=== PATIENT | female | born 1975 | race Caucasian/White ===

== ENCOUNTER 2021-11-08 04:10 | Emergency (ER) | payer SELFPAY ==
[~2021-11-08] VITALS: Ht 154.9 cm; Wt 102.1 kg
[2021-11-08 04:15] VITALS: BP 112/66
--- NOTE | 2021-11-08 04:18 | NUR ---
TO LOBBY A/W BED AMBULATORY
[2021-11-08 05:23] LABS: APPEARANCE,URINE CLEAR (CLEAR); BILIRUBIN,URINE NEGATIVE (NEGATIVE); BLOOD, URINE TRACE-I (NEGATIVE); COLOR,URINE YELLOW (YELLOW); LEUKOCYTE ESTERASE ,URINE NEGATIVE (NEGATIVE); NITRITE, URINE NEGATIVE (NEGATIVE); UGLUCOSE NEGATIVE (NEGATIVE)
[2021-11-08 05:25] LABS: BASOPHILS # (AUTO) 0.1 K/uL (0.00-0.22); BASOPHILS % (AUTO) 0.7 % (0.0-2.0); EOSINOPHILS # (AUTO) 0.1 K/uL (0-0.4); EOSINOPHILS % (AUTO) 1.3 % (0.0-4.0); HEMATOCRIT 37.1 % (36-48); HEMOGLOBIN 12.7 g/dL (12.0-16.0); LYMPHOCYTES # (AUTO) 2.3 K/uL (2.5-16.5); LYMPHOCYTES % (AUTO) 28.5 % (20.5-51.1); MEAN CORPUSCULAR HEMOGLOBIN 31 pg (27-31); MEAN CORPUSCULAR HGB CONC 34 g/dL (33-37); MONOCYTES # (AUTO) 0.7 K/uL (0.8-1.0); MONOCYTES % (AUTO) 8.1 % (1.7-9.3); NEUTROPHILS % (AUTO) 61.4 % (42.2-75.2); PLATELET COUNT (AUTO) 270 K/uL (140-450); RED BLOOD CELL COUNT(AUTO) 4.17 MIL/uL (4.20-5.40); RED CELL DISTRIBUTION WIDTH 14.1 % (11.6-13.7); WHITE BLOOD COUNT (AUTO) 8.2 K/uL (4.8-10.8)
[2021-11-08 05:40] LABS: RBC,URINE 0-5 /HPF (0-5)
[2021-11-08 05:41] LABS: WBC,URINE 0-5 /HPF (0-5)
[2021-11-08 05:44] LABS: ALBUMIN 3.4 g/dL (3.4-5.0); ANION GAP 8.9 (8-16); CARBON DIOXIDE 26.8 mmol/L (21-32); CREATININE 0.7 mg/dL (0.6-1.3); POTASSIUM 3.7 mmol/L (3.5-5.1); TOTAL BILIRUBIN 0.3 mg/dL (0.0-1.0)
--- NOTE | 2021-11-08 06:32 | NUR ---
Dr. Pineda examining patient.
--- NOTE | 2021-11-08 06:32 | NUR ---
PT TAKEN TO BED 9
[2021-11-08] MEDS ORDERED: ONDANSETRON 4 MG/2 ML VIAL IVP ONE (06:40)
[2021-11-08] MEDS ORDERED: FAMOTIDINE 20 MG/2 ML VIAL IVP ONE (06:40)
[2021-11-08] MEDS ORDERED: KETOROLAC 30 MG/ML VIAL IVP ONE (06:40)
--- NOTE | 2021-11-08 07:15 | NUR ---
46 Y/O FEMALE BIBS FROM HOME, C/O LOWER ABD SHARP PAIN, NAUSEA, VOMITING SINCE 3 HOURS. NO BLOOD IN VOMIT. A/OX4, UNLABORED BREATHING, SPEAKING IN FULL SENTENCES. AMBULATORY W/O ASSISTANCE. SKIN IS PINK/WAM/DRY. DENIES COUGH, FEVER, CP, SOB, OR DIARRHEA. NKA
--- NOTE | 2021-11-08 07:16 | NUR ---
Pt report given to MANUEL JENSEN. Transfer of care at this time.
--- NOTE | 2021-11-08 07:30 | NUR ---
PT TAKEN TO CT VIA [facility]
[2021-11-08] MEDS ORDERED: DICYCLOMINE HCL LIQUID 20 MG, ALUMINUM HYD/MAG/SIMETHICONE 30 ML, LIDOCAINE VISCOUS 2% ... PO ONE ×3 (09:05)
[2021-11-08] MEDS ORDERED: DICYCLOMINE HCL LIQUID 10 MG/5 ML UDC ONE (09:17)
[2021-11-08] MEDS ORDERED: ALUMINUM HYD/MAG/SIMETHICONE 30 ML UDC ONE (09:17)
[2021-11-08] MEDS ORDERED: OMEP40EC24 PO (10:27)
[2021-11-08] MEDS ORDERED: BEN10 PO (10:28)
[2021-11-08] MEDS ORDERED: SUCR1TAB35 PO (10:28)
[2021-11-08 11:00] VITALS: BP 113/76
--- NOTE | 2021-11-08 11:00 | NUR ---
Patient discharged with v/s stable. Written and verbal after care instructions given and explained. Patient alert, oriented and verbalized understanding of instructions. Ambulatory with steady gait. All questions addressed prior to discharge. ID band removed. Patient advised to follow up with PMD. Rx of BENTYL PRILOSEC CARAFATE given. Patient educated on indication of medication including possible reaction and side effects. Opportunity to ask questions provided and answered.
--- NOTE | 2021-11-08 11:12 | NUR ---
Chart checked and completed. The patient's care was reviewed and supervised by Yanira Helms RN.
== END 2021-11-08 11:00 | disposition home or self-care (01) ==
LOC: MED 04:10
DX: K29.70 Gastritis, unspecified, without bleeding (principal); Z98.890 Other specified postprocedural states; Z79.899 Other long term (current) drug therapy
CPT/HCPCS: 36415; 74176; 80053; 81001; 81025; 83690; 84702; 85025; 96374; 96375; 99284; J1885; J2405; J3490